=== PATIENT | female | born 1940 | race Caucasian/White ===

== ENCOUNTER 2019-10-27 21:01 | Inpatient (IN) | payer OTHER, MEDICARE ==
[~2019-10-27] VITALS: Ht 175.3 cm; Wt 65.0 kg
[2019-10-27 21:18] VITALS: BP_SYST 140
--- NOTE | 2019-10-27 22:14 | NUR ---
Patient to ER bed 06 for evaluation. Side rails up.
--- NOTE | 2019-10-27 22:16 | NUR ---
Patient was BIB from [facility] for a wound check. Pt had fallen about 2 weeks ago and has an open wound to left leg. Dr. Lux has been treating the wound for 2 weeks but is not getting better. Noted blackened wound. Pt is AAO x 4. NO other injuries/complaints per patient or noted.
--- NOTE | 2019-10-27 22:50 | NUR ---
Dr. Rivera at bedside examining Pt.
[2019-10-27] MEDS ORDERED: AMPICILLIN SODIUM/SULBACTAM NA 3 GM VIAL IM ONE (23:00)
[2019-10-27] MEDS ORDERED: cefTRIAXone 1 GM IVPB PREMIX 50 ML IV ONE (23:00)
[2019-10-27] MEDS ORDERED: traMADol HCL HCL 50 MG TABLET (ULTRAM) PO PRN (23:00)
--- NOTE | 2019-10-27 23:04 | NUR ---
Called [facility] for bed. Per MST, will call back with room number.
[2019-10-27 23:08] LABS: BASOPHILS % (AUTO) 0.4 % (0.0-2.0); EOSINOPHILS # (AUTO) 0.1 K/uL (0.0-0.4); EOSINOPHILS % (AUTO) 0.6 % (0.0-4.0); HEMATOCRIT 42.3 % (36-48); HEMOGLOBIN 14.2 g/dL (12.0-16.0); LYMPHOCYTES # (AUTO) 1.7 K/uL (1.0-5.5); LYMPHOCYTES % (AUTO) 20.6 % (20.5-51.5); MEAN CORPUSCULAR HEMOGLOBIN 31 pg (27-31); MEAN CORPUSCULAR HGB CONC 34 % (32-36); MEAN CORPUSCULAR VOLUME 92 fL (79.0-98.0); MONOCYTES # (AUTO) 0.6 K/uL (0.0-1.0); MONOCYTES % (AUTO) 7.5 % (1.7-9.3); NEUTROPHILS # (AUTO) 5.8 K/uL (1.8-7.7); NEUTROPHILS % (AUTO) 70.9 % (40.0-70.0); PLATELET COUNT (AUTO) 384 K/uL (130-430); RED BLOOD CELL COUNT(AUTO) 4.58 MIL/uL (4.2-6.2); RED CELL DISTRIBUTION WIDTH 14.1 % (9.0-15.0); WHITE BLOOD COUNT (AUTO) 8.2 K/uL (4.8-10.8)
[2019-10-27 23:21] LABS: ANION GAP 6 (5-15); CALCIUM 8.8 mg/dL (8.4-11.0); CHLORIDE 97 mmol/L (98-107); CREATININE 0.49 mg/dL (0.55-1.30); GLUCOSE 88 mg/dL (70-99); SODIUM SERUM 129 mmol/L (136-145); UREA NITROGEN, BLOOD 11 mg/dL (8-21)
[2019-10-27 23:27] LABS: ALANINE AMINOTRANSFERASE 25 U/L (12-78); ALBUMIN 3.1 g/dL (3.4-4.8); ASPARTATE AMINOTRANSFERASE 17 U/L (10-37); TOTAL BILIRUBIN 0.2 mg/dL (0.0-1.0)
[2019-10-27] MEDS ORDERED: AMPICILLIN SODIUM/SULBACTAM NA 3 GM VIAL ONE (23:35)
--- NOTE | 2019-10-28 00:03 | NUR ---
Patient will be admitted to care of Dr. Lux. Admitted to Med Surg unit. Will go to room 132A. Belongings list completed. Complete and up to date summary report printed. SBAR report to be given at bedside with opportunity for questions.
[2019-10-28] MEDS ORDERED: BACTROBAN TP (00:25)
--- NOTE | 2019-10-28 00:25 | NUR ---
ADMITTED A 79 YEAR OLD FEMALE WHO WAS BROUGHT IN FROM THE [facility] WITH AN ADMITTING DIAGNOSIS OF CELLULITIS OF THE LEFT LOWER EXTREMITY UNDER THE SERVICE OF . ADMITTING ORDERS GIVEN. PLACED IN ROOM 123-A. PT. IS ALERT,ORIENTED, AMBULATORY WITH ASSIST. AFEBRILE, NOT IN ACUTE DISTRESS. DENIES ANY PAIN OR DISCOMFORT. REDNESS,SWELLING AND OPEN WOUND NOTED ON MEDIAL ASPECT THE LEFT LOWER LEG. WITH SALINE LOCK TO THE LEFT WRIST INTACT. VS STABLE, WILL CONTINUE TO MONITOR. NEEDS ATTENDED.
--- NOTE | 2019-10-28 00:25 | NUR ---
ADMISSION: The patient, REGGIE LEROY, 79 y/o, F admitted by MIRELLA GALLAGHER MD, with the diagnosis of CELLULITIS TO LEFT LEG, to room 132 A .
[2019-10-28] MEDS ORDERED: SULF1TAB48 PO (00:26)
[2019-10-28] MEDS ORDERED: PSEU1TAB PO (00:26)
[2019-10-28] MEDS ORDERED: LOPE2CAP PO (00:27)
[2019-10-28] MEDS ORDERED: ACAM333T9 PO (00:28)
[2019-10-28] MEDS ORDERED: GUAI100S14 PO (00:28)
[2019-10-28] MEDS ORDERED: IBUP-1970 PO (00:29)
[2019-10-28] MEDS ORDERED: TRAZ-250 PO (00:30)
[2019-10-28] MEDS ORDERED: LISI10TA5 PO (00:30)
[2019-10-28] MEDS ORDERED: VIS50 PO (00:31)
[2019-10-28] MEDS ORDERED: MAG-151 PO (00:32)
[2019-10-28] MEDS ORDERED: MOM PO (00:33)
[2019-10-28] MEDS ORDERED: ACET-2165 PO (00:34)
[2019-10-28] MEDS ORDERED: FLUO40CA8 PO (00:35)
--- NOTE | 2019-10-28 00:35 | NUR ---
Medication reconciliation completed with information provided by patient's list. Any prior medication reconciliation on file was reviewed and corrected.
[2019-10-28] MEDS: AMPICILLIN SODIUM/SULBACTAM NA 3 GM in NS 100 ML IV SCH ×4 (00:39→18:02)
--- NOTE | 2019-10-28 00:39 | NUR ---
DUE IV ANTIBIOTIC UNASYN 3 GM ADMINISTERED.
[2019-10-28 01:10] VITALS: BP_SYST 145
[2019-10-28] MEDS ORDERED: AMPICILLIN SODIUM/SULBACTAM NA 3 GM VIAL ONE (01:54)
--- NOTE | 2019-10-28 02:57 | NUR ---
CALL: RECEIVED CALL FROM GRECHEN CHARGE NURSE FROM [facility] ,PRIMARY RN IS ON BREAK , SHE ASKED ABOUT THE PT ADMISSION TIME , UNIT AND DIAGNOSIS . INFORMED HER AFTER CONFIRMING THE CALL . PER HER PT IS CURRENT WITH FLU VACCINE . SHE IS THERE FOR REHABILITATION FOR ALCOHOL ABUSE AND DEPRESSION .
--- NOTE | 2019-10-28 04:00 | NUR ---
ASLEEP, NO SIGNIFICANT CHANGE. PT.REMAINS STABLE AND PAIN FREE.
--- NOTE | 2019-10-28 04:43 | NUR ---
AM LABS DRAWN BY LAB.[facility].
--- NOTE | 2019-10-28 06:28 | NUR ---
PT. AWAKE, NOT IN ANY KIND OF DISTRESS. VERBALIZED HAVING LOOSE STOOLS. WILL ENDORSE TO AM SHIFT.
--- NOTE | 2019-10-28 07:25 | NUR ---
ENDORSED CARE TO SUMMER RN STABLE.
--- NOTE | 2019-10-28 07:34 | NUR ---
Opening Note received bedside SBAR report from overnight associate RN, patient resting in bed, patient denies any pain, no acute distress noted, respirations even and unlabored, room close to nurses station, educated patient on use of call light and asked to call for assistance, patient verbalized understanding, call light in reach, bed in low and locked position, bed alarm on.
[2019-10-28 08:39] VITALS: BP_SYST 139
--- NOTE | 2019-10-28 09:24 | NUR ---
RN Rounds patient resting in bed, respirations even and unlabored on room air, patient reports pain is controlled, no acute distress noted.
--- NOTE | 2019-10-28 11:40 | NUR ---
RN Rounds patient resting in bed, no acute distress noted, patient reports pain is controlled at this time.
[2019-10-28 12:06] VITALS: BP_SYST 142
--- NOTE | 2019-10-28 13:40 | NUR ---
Physician Rounds Dr. Lux at bedside examining patient.
--- NOTE | 2019-10-28 13:42 | NUR ---
CONSULTATION PAGED REASON FOR CONSULTATION:CELLULITIS OF LEFT LOWER EXTRMITY WAS CONSULT CALLED?Y PERSON WHO WAS NOTIFIED:KENDALL CONSULTING PHYSICIAN:ANTON SHORT MANAGER [employer]IDEO [employer]AMES SPECIALTY:SURGEON MANAGER [employer]IDEO GAMES PHONE NUMBER:[phone] REQUESTING PHYSICIAN:MIRELLA CALVERT
[2019-10-28] MEDS ORDERED: LOPERAMIDE HCL 2 MG CAPSULE PO PRN (14:15)
[2019-10-28] MEDS ORDERED: LISINOPRIL 10 MG TABLET (PRINIVIL) PO ONE (14:15)
[2019-10-28] MEDS ORDERED: ACETAMINOPHEN 325 MG TABLET PO PRN (14:15)
[2019-10-28] MEDS ORDERED: MAG-AL HYDROX/SIMETH 30 ML UDC PO PRN (14:15)
[2019-10-28] MEDS ORDERED: MILK OF MAGNESIA 30 ML UDC PO PRN (14:15)
[2019-10-28] MEDS ORDERED: traZODone HCL 50 MG TABLET (DESYREL) PO PRN (14:15)
--- NOTE | 2019-10-28 14:20 | NUR ---
Spoke with Physician spoke with Dr. Hernandez, he is aware of consultation for wound to left lower extremity and will be in to see the patient.
[2019-10-28] MEDS ORDERED: SULFAMETHOXAZOLE/TRIMETHOPR DS 1 TABLET PO ONE (14:30)
[2019-10-28] MEDS ORDERED: FLUoxetine HCL 20 MG CAPSULE (PROzac) PO ONE (14:30)
--- NOTE | 2019-10-28 14:36 | NUR ---
Spoke with pharmacy spoke with eren Kim, per pharmacist patients medication campral is not available and must be brought from home, called patients daughter BERNARDA, per patients daughter she is not available to bring in the medication at this time, informed pharmacist Judy, per Judy she will see if medication can be obtained through a different pharmacy. Addendum: 10/28/19 at 1632 by Jasmin Butt RN spoke with pharmacist Judy, she was unable to obtain campral from another pharmacy, called Dr. Lux, per Dr. Lux he will call in an order to [facility] for claudio MENCHACA to pickup and bring into hospital, informed patients claudio MENCHACA.
[2019-10-28] MEDS ORDERED: MUPIROCIN 2% TOPICAL OINTMENT 22 GM TP ONE (15:00)
[2019-10-28] MEDS: ACAMPROSATE CALCIUM 333 MG TABLET.DR PO SCH (15:00)
--- NOTE | 2019-10-28 15:11 | NUR ---
SS NOTES: AMMONIUM HYDROXIDE OPERATOR was referred by CM to see patient for DCP and Substance Abuse. AMMONIUM HYDROXIDE OPERATOR met with patient at bedside. Pt was awake and oriented x4. Pt was cooperative with normal mood and appropriate affect. Pt's speech was normal with good eye contact. Pt is a 79 y/o single female who came in for cellulitis from [facility] where she has been for 2 months for alcohol rehabilitation. Prior to her admission at [facility], pt was living at [facility] in [place]. Pt is independent with ADL's but utilizes a walker to help her ambulate. Pt has depression and been suffering from depression for years, stating "constant down feeling". Pt states her PCP prescribes her with meds for her depression and denies any psychiatric inpt admission. Pt states she voluntarily admitted herself at [facility] due to excessive drinking of "wine Wine", 4 glasses a night for "years". Pt denies seeing a therapist/psychiatrist and states she has a good relationship with her 2 daughters. Pt's only source of income is penitentiary and "social security". Pt prefers to be discharged back to [facility], but if SNF is indicated, daughter BERNARDA (POA) would prefer for pt to go closer to [place] (dtr will research more on preference) and [facility] and if HHS is indicated, prefers to use [facility]. SS/CM will remain available when needed.
--- NOTE | 2019-10-28 15:15 | NUR ---
Wound Care educated patient on purpose and procedure for wound care, patient verbalized understanding, wound care completed to left lower leg, patient tolerated well, patient reports pain is controlled during and after wound care, see MST shift assessment for wound care.
[2019-10-28 16:47] VITALS: BP_SYST 140
--- NOTE | 2019-10-28 17:55 | NUR ---
RN Rounds patient sitting up in bed eating dinner, tolerating well, no acute distress noted.
--- NOTE | 2019-10-28 19:17 | NUR ---
Closing Note SBAR report given to receiving RN, patient resting in bed, respirations even and unlabored on room air, no acute distress noted, room close to nurses station, educated patient on use of call light and asked to call for assistance, patient verbalized understanding, call light in reach, bed in low and locked position, bed alarm on, care endorsed to needle maker RN.
[2019-10-28 20:00] VITALS: BP_SYST 151
--- NOTE | 2019-10-28 20:00 | NUR ---
PT RECIEVEDPT BYANOTHER NURSE .
--- NOTE | 2019-10-28 20:00 | NUR ---
PT RECIEVED AWAKE ALERT AND ORIENTED X3 PT IN WITH HEP C PNA LIVER CEHOSIS . PT ASSITED TO THE BATH ROOM TO URINATE . PT HAVE NO C/O OF PAIN NO SOB . PT MEDICATED WITH MOTRIN FOR PAIN . PT INDUCED TO ANOTHER NURSE TO CONTINUE WITH CARE .
[2019-10-28] MEDS: SULFAMETHOXAZOLE/TRIMETHOPR DS 1 TABLET PO SCH (21:53)
[2019-10-28] MEDS: ENOXAPARIN SODIUM 40 MG/0.4 ML SYRINGE SUBCUT SCH (21:54)
[2019-10-28] MEDS: IBUPROFEN 800 MG TABLET PO PRN (21:54)
[2019-10-28] MEDS: guaiFENesin 200 MG/10 ML UDC PO PRN (21:55)
--- NOTE | 2019-10-28 21:56 | NUR ---
MEDICATION: DUE MEDS GIVEN , PT IS COMFORTABLE; ALL NEEDS ATTENDED ; WOUND CARE DRESSING WAS CHANGED TODAY IN THE AFTER NOON , DRESSING IS CLEAN DRY AND INTACT ; DRESSING OPEN SLIGHTLY AND APPLIED BACTROBAN TO THE WOUND BED ; WOUND IS 80% ESCHAR AND 20 % RED ; NO DRAINAGE NOTICED ; NO FOUL SMELLING PRESENT . PRIMARY RN NOTIFIED .
[2019-10-28] MEDS: MUPIROCIN 2% TOPICAL OINTMENT 22 GM TP SCH (21:57)
--- NOTE | 2019-10-28 22:59 | NUR ---
Assumed nursing care of pt from nurse Santana.
[2019-10-29] MEDS: AMPICILLIN SODIUM/SULBACTAM NA 3 GM in NS 100 ML IV SCH ×5 (00:12→23:29)
--- NOTE | 2019-10-29 00:12 | NUR ---
Pt is awake and resting quietly in bed. Scheduled IV Antibiotic started. IV site in left wrist is patient and without any signs of infiltration. Left leg dressing is dry and intact. Call light is with pt and bed alarm is on. Pt's room is across from the nurses' Station.
[2019-10-29 01:50] VITALS: BP_SYST 147
--- NOTE | 2019-10-29 02:28 | NUR ---
Pt is sleeping without any distress noted. Call light is with pt and bed alarm is on.
--- NOTE | 2019-10-29 02:35 | NUR ---
Pt attempted to get out of bed without using call light and bed alarm was triggered. Pt is forgetful. Pt then ambulated to the bathroom with a walker to urinate and back to bed. Standby assist provided. Gait unsteady at times. Call light given to pt and bed alarm is on. Pt was able to demonstrate use of call light.
--- NOTE | 2019-10-29 03:54 | NUR ---
Pt is sleeping comfortably in bed. Fall and safety precautions are in place.
--- NOTE | 2019-10-29 04:40 | NUR ---
Pt attempted to get out of bed without using her call light and she triggered her bed alarm. Pt had her long sleeve top and an underwear on. Pt refused to put her hospital gown on. Pt requested to put her Jeans pants on so that she could go outside. When asked where she is, pt stated she is at [facility]. Pt was reoriented to where she is. Pt ambulated to the bathroom with a walker to urinate and back to bed. Pt's gait was unsteady. Call light was given to pt and she was instructed to use it to call for assistance before getting out of bed to prevent fall and/or injuries. Pt verbalized understanding. Bed alarm on.
--- NOTE | 2019-10-29 06:30 | NUR ---
Pt is awake and not in any distress at this time. All pt's needs were attended to. Call light is with pt and bed alarm is on. Will endorse to day shift nurse.
--- NOTE | 2019-10-29 07:30 | NUR ---
RN spoke with pt's daughter, Mrs. Gunn regarding pt's Non formulary medication Campral. Per pt's daughter, the medication was administered to pt at [facility] and she will have [facility] contact AM nurse, Mari. Pt's daughter stated pt was given the medication for alcohol withdrawal and has been sober for 3 weeks, therefore she doesn't think pt still needs the medication. Endorsed to nurse Guerra.
--- NOTE | 2019-10-29 07:35 | NUR ---
OPENING NOTES: RECEIVED PATIENT FROM MRI MANAGER NURSE. PATIENT IS AWAKE AND ALERT x3 LAYING DOWN IN BED. PATIENT DENIES ANY PAIN AT THE MOMENT. PATIENT IS TOLERATING OXYGEN AT ROOM AIR WITH NO SIGNS OF DISTRESS OR SHORTNESS OF BREATH NOTED. IV SITE IS PATENT WITH NO SIGNS OF INFILTRATION NOTED. PATIENT IN STABLE CONDITION. SAFETY, FALL AND ASPIRATION PRECAUTIONS ARE IN PLACE. BED LOCKED IN LOWEST POSITION WITH CALL LIGHT IN REACH. WILL CONTINUE TO MONITOR PATIENT FOR ANY CHANGES.
[2019-10-29 08:20] VITALS: BP_SYST 169
[2019-10-29] MEDS: MUPIROCIN 2% TOPICAL OINTMENT 22 GM TP SCH ×2 (08:57→21:21)
[2019-10-29] MEDS: SULFAMETHOXAZOLE/TRIMETHOPR DS 1 TABLET PO SCH ×2 (08:58→21:20)
[2019-10-29] MEDS: FLUoxetine HCL 20 MG CAPSULE (PROzac) PO SCH (08:58)
[2019-10-29] MEDS: LISINOPRIL 10 MG TABLET (PRINIVIL) PO SCH (08:58)
--- NOTE | 2019-10-29 09:30 | NUR ---
IV RIPPED OUT: PATIENT PULLED OUT IV SITE. CATHETER INTACT. NO ACTIVE BLEEDING NOTED. DRESSING APPLIED. WILL ATTEMPT TO INSERT NEW IV SITE.
--- NOTE | 2019-10-29 10:27 | NUR ---
RN ROUNDS: PATIENT IS AWAKE AND ALERT x3 LAYING DOWN IN BED. NO SIGNS OF DISTRESS OR SHORTNESS OF BREATH NOTED. PATIENT IN STABLE CONDITION. WILL CONTINUE TO MONITOR PATIENT FOR ANY CHANGES.
[2019-10-29] MEDS: IBUPROFEN 800 MG TABLET PO PRN (10:54)
--- NOTE | 2019-10-29 11:00 | NUR ---
NEW IV: IV INSERTED IN LEFT ANTECUBITAL 22G. ASEPTIC TECHNIQUE USED. SUCCESSFUL AFTER ONE ATTEMPT. PATIENT TOLERATED IT WELL. IV SITE INTACT WITH CLEAN, DRY DRESSING AND FLUSHED WITH NO RESISTANCE. WILL CONTINUE TO MONITOR SITE.
--- NOTE | 2019-10-29 12:10 | NUR ---
RN ROUNDS: PATIENT IS AWAKE AND ALERT x3 LAYING DOWN IN BED. PATIENT DENIES ANY PAIN AT THE MOMENT. NO SIGNS OF DISTRESS OR SHORTNESS OF BREATH NOTED. PATIENT IN STABLE CONDITION. WILL CONTINUE TO MONITOR PATIENT FOR ANY CHANGES.
[2019-10-29 12:32] VITALS: BP_SYST 149
[2019-10-29] MEDS: ACAMPROSATE CALCIUM 333 MG TABLET.DR PO SCH ×2 (15:00→21:00)
--- NOTE | 2019-10-29 16:05 | NUR ---
WOUND EVALUATION: Wound Consult received from Dr. Lux. Thank you Dr. Lux for the consult. Patient received in a Olean Bed with an Isoflex KELLI mattress, awake, alert, and oriented x 3. Patient is unable to turn in bed independently. Warren Score is a 19. Past Medical History: Depression, Hypertension, Degenerative Joint Disease, Dementia. Recent Labs: WBC 8.2, RBC 4.58, hemoglobin 14.2, hematocrit 42.3, sodium 129, chloride 97, BUN 11, creatinine 0.49, alkaline phosphatase 183 serum total protein 6.2 albumin 3.1. Microbiology: Blood culture results 2 in progress. MRSA screen results negative. Stool Clostridium difficile toxin results in progress. Intrinsic factors that delay wound healing: Hypoalbuminemia. Extrinsic factors that delay wound healing: Decreased mobility. Wound Assessment: 1. Left medial mid calf: Wound, present on admission. Patient stated that she sustained the wound when she had her leg leg her front wheel walker while sitting down. Wound bed is 85% black slough, 10% red tissue, 5% yellow tissue. Mild odor, scant sanguineous drainage. Periwound is moist and erythematous. Surrounding tissue has moist tissue, erythema, and 1+ pitting edema. No odor, no drainage. rosi-wound intact. Measures 5.7 cm x 2.5 cm x 0.4 cm. Recommend: Cleanse wound with normal saline. Apply moisture barrier cream to rosi-wound. Apply Venelex ointment to wound bed. Cover with foam dressing. Perform wound care daily, and as needed for dressing soiling or dislodgement. Offload site at all times. Also recommend: Reposition patient every 2 hours with pillow support and off-load pressure areas with pillows for pressure re-distribution. Offload, elevate and float bilateral heels with pillows. Perform skin care and monitor skin integrity Q shift. Use moisture barrier cream on buttocks and other moisture susceptible areas QID and as needed for soiling.
[2019-10-29 16:20] VITALS: BP_SYST 166
--- NOTE | 2019-10-29 16:30 | NUR ---
RN ROUNDS: PATIENT IS AWAKE AND ALERT x4 LAYING DOWN IN BED. FAMILY AT BEDSIDE. PATIENT DENIES ANY PAIN AT THE MOMENT. NO SIGNS OF DISTRESS OR SHORTNESS OF BREATH NOTED. PATIENT IN STABLE CONDITION. WILL CONTINUE TO MONITOR PATIENT FOR ANY CHANGES.
[2019-10-29] MEDS: BALSAM PERU/CASTOR OIL 60 GM OINT...G. TP SCH (17:31)
--- NOTE | 2019-10-29 17:45 | NUR ---
WOUND CARE: WOUND CARE WAS PERFORMED AT BEDSIDE. PATIENT TOLERATED IT WELL. WILL CONTINUE TO MONITOR DRESSING.
--- NOTE | 2019-10-29 18:45 | NUR ---
CLOSING NOTES: PATIENT IS AWAKE AND ALERT x3 LAYING DOWN IN BED. PATIENT DENIES ANY PAIN AT THE MOMENT. PATIENT IS TOLERATING OXYGEN AT ROOM AIR WITH NO SIGNS OF DISTRESS OR SHORTNESS OF BREATH NOTED. IV SITE IS PATENT WITH NO SIGNS OF INFILTRATION NOTED. PATIENT IN STABLE CONDITION. SAFETY, FALL AND ASPIRATION PRECAUTIONS REMAINED IN PLACE THROUGHOUT THE SHIFT. BED LOCKED IN LOWEST POSITION WITH CALL LIGHT IN REACH. WILL ENDORSE PATIENT CARE TO ONCOMING FISH TENDER NURSE.
--- NOTE | 2019-10-29 19:10 | NUR ---
OPENING NOTES Patient awake, watching TV. AOx3. No signs of respiratory distress noted. Denies pain and discomfort at this time. Accidentally pulled out her IV site, will re insert a new IV line. Call light within reach, patient educated to use call light when assistance is needed, patient verbalized understanding. Bed locked and in lowest position. Pt room close to nursing station. Safety precautions in place. Will continue to monitor patient.
[2019-10-29 20:00] VITALS: BP_SYST 152
--- NOTE | 2019-10-29 21:15 | NUR ---
IV Re-insertion New IV line done at this time, first attempt on Right Wrist #[id number]. Patient tolerated well. Safety precautions in place. Will continue to monitor patient.
--- NOTE | 2019-10-29 21:20 | NUR ---
MED PASS Due medication given at this time. Patient tolerated well. Patient educated on purpose, side effects and benefits of medications that are given. Patient verbalized understanding. No signs of respiratory distress and discomfort noted. Breathing even and unlabored. Safety precautions in place. Will continue to monitor patient
[2019-10-29] MEDS: ENOXAPARIN SODIUM 40 MG/0.4 ML SYRINGE SUBCUT SCH (21:21)
--- NOTE | 2019-10-29 23:34 | NUR ---
RN ROUNDS Patient asleep at this time. No signs of respiratory distress and discomfort noted. Breathing even and unlabored. Call light within reach. Bead alarm on. Safety precautions in place. Will continue to monitor patient.
[2019-10-30] VITALS (8 sets, daily range): BP systolic 145–166
--- NOTE | 2019-10-30 02:36 | NUR ---
RN ROUNDS Patient ambulates to restroom and back to bed with walker and with assist of RN. No signs of respiratory distress noted. Denies pain and discomfort at this time. Needs attended. Safety precautions in place. Will continue to monitor patient
--- NOTE | 2019-10-30 04:17 | NUR ---
RN ROUNDS Patient asleep at this time. No signs of respiratory distress and discomfort noted. Breathing even and unlabored. Safety precautions in place. Will continue to monitor patient
[2019-10-30] MEDS: AMPICILLIN SODIUM/SULBACTAM NA 3 GM in NS 100 ML IV SCH ×4 (05:30→22:53)
--- NOTE | 2019-10-30 06:45 | NUR ---
CLOSING NOTES Patient awake, watching. No signs of respiratory distress noted. Denies pain and discomfort at this time. IV site, patency noted. Call light within reach. Bed locked and in lowest position. Pt room close to nursing station. Safety precautions in place. All needs met throughout the shift. Will continue to monitor until endorse to oncoming shift nurse for continuity of care.
--- NOTE | 2019-10-30 07:55 | NUR ---
INITIAL ROUNDS Received pt AAOx2, no s/s resp distress, no c/o pain or discomfort. Noted dressing clean, dry and intact to LLE. Plan of care for the day reviewed pt-pt verbalized her understanding. Pain management, skin and safety discussed-teach back done. Side rails up x3, bed alarm on, room across from nursing station for safety, call light within reach.
[2019-10-30] MEDS: ACAMPROSATE CALCIUM 333 MG TABLET.DR PO SCH ×3 (09:00→21:00)
--- NOTE | 2019-10-30 09:55 | NUR ---
Nutrition Update Warren Scale 18 noted. Pt admitted for cellulitis of LLE. Diet: regular BMI: 21.2 kg/m2 RD to follow per nutrition care standards.
[2019-10-30] MEDS: LISINOPRIL 10 MG TABLET (PRINIVIL) PO SCH (10:22)
[2019-10-30] MEDS: SULFAMETHOXAZOLE/TRIMETHOPR DS 1 TABLET PO SCH ×2 (10:22→22:52)
[2019-10-30] MEDS: FLUoxetine HCL 20 MG CAPSULE (PROzac) PO SCH (10:22)
[2019-10-30] MEDS: MUPIROCIN 2% TOPICAL OINTMENT 22 GM TP SCH ×2 (10:23→22:52)
[2019-10-30] MEDS: BALSAM PERU/CASTOR OIL 60 GM OINT...G. TP SCH (14:50)
--- NOTE | 2019-10-30 14:50 | NUR ---
WOUND CARE Pt's old dressing removed. Wound cleansed with normal saline, Venelex applied to wound bed, moisture barrier cream applied to periwound. Covered with a foam dressing. Wound measured at 5.8 cm x 2.4 cm x 0.5 cm. Wound bed 15% red tissue, 5% yellow tissue and 80% black tissue, no odor, minimal drainage. Periwound slightly pink, edema noted. Pt tolerated well. Call light within reach.
--- NOTE | 2019-10-30 16:27 | NUR ---
Social Service Note: MARKETING AND OUTREACH COORDINATOR received call from Chani at [place] ([phone]) inquiring about when pt will return. MARKETING AND OUTREACH COORDINATOR alerted Chani that there is no dc order at this time.
--- NOTE | 2019-10-30 16:44 | NUR ---
Discharge Planning: H[employer] has faxed pt's information to [facility] ([phone] [phone]). H[facility] SCALER asked [facility] to follow up with nurses station for discharge. Packet has been given to nurses station.
--- NOTE | 2019-10-30 16:50 | NUR ---
Nutrition Assessment (short note d/t high patient load) A - RD reviewed pertinent nutrition-related info via EMR (physician notes/nursing notes/labs/meds/nursing care trends/care activity). Admission Dx: Cellulitis of LLE PMH: HTN, DJD, dementia per physician notes Current Diet Order/Nutrition Support: Regular x2 days Ht: 69"/5'9" Wt: 143#/65 kg IBW: 145#/66 kg %IBW: 98% UBW: 135#/61 kg %UBW: 106% BMI: 21.2 kg/m2 (underweight for geriatric age) Subjective Info: Nutrition Consult received for wound tot he L medial calf. RD Notification received for unhealed wound. Pt reported good appetite, tolerating diet well without any c/o chewing/swallowing. Pt has all her own teeth. Pt reported that she typically only eats breakfast ad lunch, and skips dinner for preference reasons. No supplement use reported. RD offered supplements to better meet optimal nutritional needs -- pt accepted. Pt is not yet meeting optimal nutritional needs. Pt declined nutrition education. ESTIMATED NUTRITIONAL NEEDS CALORIES/DAY: 7097-7746 kcal/day (30-35 kcal/kg CBW for wound healing) PROTEIN/DAY: 78-98 gm/day (1.2-1.5 gm/kg CBW for wound healing) FLUID/DAY: 2-2.3 L/day (1 ml/kcal/day for maintenance) D - Increased nutritional needs related to metabolic demands as evidenced by estimated nutritional requirements for wound healing. I - Recommend regular diet w/ Ensure Enlive BID, Fer BID (supplements provide an additional ~880 kcal/day, 45 gm protein/day) M - Monitor appetite and PO intakes w/ goal of pt meeting at least 75% of estimated nutritional needs, labs trending WNL, normal GI function, and skin integrity/wt maintenance E - Moderate risk; RD to F/U within 3-5 days
--- NOTE | 2019-10-30 16:56 | NUR ---
Dietitian Recommendations * Recommend regular diet w/ Ensure Enlive BID, Fer BID (supplements provide an additional ~880 kcal/day, 45 gm protein/day) LP, RD Please refer to Nutrition Assessment for details.
--- NOTE | 2019-10-30 18:05 | NUR ---
[facility] Spoke with Yasmin RN at [facility] [phone] regarding pt being transferred back now that the pt is medically cleared to be discharged back to the facility. Report given to Yasmin about LLE wound treatment and IVPB antibiotics given today. Faxed over the discharge order and the wound care orders to Yasmin at [phone]. Pt to be sent to [facility] under the care of Dr. Alejo. Ambulance to be arranged by [employer] and/or children's court magistrate.
--- NOTE | 2019-10-30 19:15 | NUR ---
change of shift.pt to be transfered to [facility].to f/u re;paper work,telephone the family. no c/o pain,nausea@this hour.call light/telephone w/in reach of the pt.
--- NOTE | 2019-10-30 19:35 | NUR ---
CLOSING NOTE Pt resting quietly in bed with no s/s resp distress, no c/o pain or discomfort. Pt aware of discharge orders back to [facility]. Dressing to LLE clean, dry and intact. Endorsed to maintenance technician 2nd shift educator senior clinical plans. All precautions remain in place. Call light within reach.
--- NOTE | 2019-10-30 20:00 | NUR ---
pt.assessed.v/s assessed.values w/in normal limits.i have re-iterated to the pt.that she is to be return transfer to [facility]. pt stat she is not going.she presents diarrhea,nausea,she dose not feel well and it is late.i inquired if the pt. had presented these presentations to the pt.stated yes.to f/u. paged.
--- NOTE | 2019-10-30 20:30 | NUR ---
i had telephoned family;dtr;joaquin.i apprised the dtr that the pt.was to be return transfer to [facility] this evening. the dtr.has requested if the pt could remain in hospital an additional night.i apprised the dtr.that i have paged re; pt's symptomology;diarrhea,nausea.dtr. requested to telephone her if pt. is transfer or remains in hospital.to f/u re;transfer.
--- NOTE | 2019-10-30 20:45 | NUR ---
has returned the page.i apprised of th pt's status. ordered hold the transfer to [facility] until th am;10/31/19.i apprised that the pt. had requested medication;nausea. ordered;zofran;4mg ivp q-6hrs/p; nausea, i have telephoned the pt's dtr;joaquin i apprised the dtr.that the pt.is to remain in hospital and be transferred in am;10/31/19.
[2019-10-30] MEDS ORDERED: ONDANSETRON HCL 4 MG/2 ML VIAL IVP PRN (21:00)
--- NOTE | 2019-10-30 21:00 | NUR ---
2100p medications administered.pt had requested medications;prn;anxiety,sleep,diarrhea.i have administered;vistaril;anxiety, trazodone;sleep,immodium;diarrhea;to re-assess the efficacy of the respective medications.
--- NOTE | 2019-10-30 22:00 | NUR ---
pt.assessed.pt.assisted to the restroom;pt utilizing the assist-device;walker.pt.ass sited return to bed.no c/o pain,nausea. general status stable.respiratory status stable.call light/telephone placed w/in reach of the pt.
[2019-10-30] MEDS: guaiFENesin 200 MG/10 ML UDC PO PRN (22:53)
[2019-10-30] MEDS: ENOXAPARIN SODIUM 40 MG/0.4 ML SYRINGE SUBCUT SCH (22:57)
[2019-10-31] VITALS: BP_SYST 140
--- NOTE | 2019-10-31 | NUR ---
pt.assessed.v/s assessed;values w/in normal limits.no c/o,pain,nausea.i have administered unasyn;0000midnight dose. general status stable.respiratory status stable.pt.capable to reposition;self.call light/telephone w/in reach of the pt. Addendum: 10/31/19 at 0349 by Chong Betancourt RN pt.assisted to the restroom.pt assessed return to bed.pt utilizing the assist-device;walker.
--- NOTE | 2019-10-31 02:00 | NUR ---
pt.assessed pt.presents quiescent affect;calm,somnolent general status stable.respiratory status stable. pt.capable to reposition self.call light/telephone w/in reach of the pt.
--- NOTE | 2019-10-31 04:00 | NUR ---
pt.assessed.pt.presents quiescent affect;calm,somnolent,general status stable.respiratory status stable;unlabored. pt.capable to reposition self.call light/telephone w/in reach of the pt.
[2019-10-31] MEDS: AMPICILLIN SODIUM/SULBACTAM NA 3 GM in NS 100 ML IV SCH (05:21)
--- NOTE | 2019-10-31 06:32 | NUR ---
pt.assessed.pt.presents quiescent affect;calm,somnolent.i have re-established the iv acces;i have administered zosyn:[id number] dose.no c/o pain,,nausea.call light/telephone w/in reach of the pt.
[2019-10-31 06:39] VITALS: BP_SYST 145
--- NOTE | 2019-10-31 07:15 | NUR ---
OPENING NOTES PT RESTING IN BED. CHEST RISE AND FALL NOTED. NONLABORED BREATHING NOTED. IV INTACT AND PATENT, NO SIGNS OF INFILTRATION. PAIN IS CONTROLLED. NO ACUTE DISTRESS NOTED. BED IN LOCKED AND LOWEST POSITION. ALL NEEDS MET. CONTINUE TO MONITOR.
[2019-10-31 08:00] VITALS: BP_SYST 140
[2019-10-31] MEDS: ACAMPROSATE CALCIUM 333 MG TABLET.DR PO SCH (09:00)
--- NOTE | 2019-10-31 09:05 | NUR ---
FAMILY SPOKE TO BERNARDA VILLASENOR, DAUGHTER, REGARDING DISCHARGE. BERNARDA JACKLYN IS OKAY WITH DISCHARGE AND MADE AWARE OF PICKUP TIME AT 1000 TO TRANSFER BACK TO [facility].
--- NOTE | 2019-10-31 09:10 | NUR ---
DISCHARGE NOTES FOLLOW UP TRANSFER TO [facility] , PATIENT WAS ACCEPTED BACK TO [facility] AND REPORT GIVEN TO DUARTE YESTERDAY. SPOKE TO CHUCK TODAY AND ACCEPTED PATIENT BACK TODAY, AMBULANCE WILL ARRIVE AT 10AM. PRIMARY NURSE MADE AWARE.
[2019-10-31] MEDS: FLUoxetine HCL 20 MG CAPSULE (PROzac) PO SCH (09:11)
[2019-10-31] MEDS: SULFAMETHOXAZOLE/TRIMETHOPR DS 1 TABLET PO SCH (09:11)
--- NOTE | 2019-10-31 09:11 | NUR ---
ROUTINE MEDS ROUTINE MEDS ADMINISTERED ORDERED PER MD, EDUCATION GIVEN, TOLERATED WELL. BED BATH GIVEN, TOLERATED WELL. NO ACUTE DISTRESS NOTED. ALL NEEDS MET. CALL LIGHT IN REACH. CONTINUE TO MONITOR.
[2019-10-31] MEDS: LISINOPRIL 10 MG TABLET (PRINIVIL) PO SCH (09:12)
[2019-10-31] MEDS: BALSAM PERU/CASTOR OIL 60 GM OINT...G. TP SCH (09:19)
[2019-10-31] MEDS: MUPIROCIN 2% TOPICAL OINTMENT 22 GM TP SCH (09:19)
--- NOTE | 2019-10-31 10:00 | NUR ---
D/C Patient Patient given medication reconciliation form and D/C instructions. Exit Care provided. Patient verbalized understanding. MD discussed with patient the results and treatment provided. Patient has unsteady gait, needs assistance. Patient in stable condition, ID band removed. IV catheter removed, intact and dressing applied, no active bleeding. Patient educated on pain management. All belongings sent with patient.
== END 2019-10-31 10:20 | DRG 603 ==
LOC: SED 21:01 → SMU 22:55
PROVIDERS: ADMIT Family Medicine; ATTEND Family Medicine
DX: L03.116 Cellulitis of left lower limb (principal); E87.1 Hypo-osmolality and hyponatremia; I10 Essential (primary) hypertension; F03.90 Unspecified dementia, unspecified severity, without behavioral disturbance, psychotic disturbance, mood disturbance, and anxiety; F32.9 Major depressive disorder, single episode, unspecified; M19.90 Unspecified osteoarthritis, unspecified site; S81.802A Unspecified open wound, left lower leg, initial encounter; X58.XXXA Exposure to other specified factors, initial encounter; Y93.89 Activity, other specified; Y92.89 Other specified places as the place of occurrence of the external cause; Z79.899 Other long term (current) drug therapy; Y99.8 Other external cause status
CPT/HCPCS: 36415; 80053; 85025; 87040-TC; 87081; 87230-TC; 99285; J0295; J0696; J1650; J2405